=== PATIENT | male | born 1990 | race Caucasian/White ===

== ENCOUNTER 2022-08-02 18:06 | Emergency (ER) | payer MEDICAID ==
[~2022-08-02] VITALS: Ht 185.4 cm; Wt 81.6 kg
--- NOTE | 2022-08-02 18:30 | NUR ---
Patient to ER bed 3 to gown for evaluation. Side rails up. Report given to LIUDMILA OROZCO.
--- NOTE | 2022-08-02 18:39 | NUR ---
urine sent to the lab
[2022-08-02 18:50] LABS: BASOPHILS # (AUTO) 0.1 K/uL (0.0-0.2); BASOPHILS % (AUTO) 0.7 % (0.0-2.0); EOSINOPHILS % (AUTO) 0.1 % (0.0-4.0); HEMATOCRIT 42.1 % (36-54); LYMPHOCYTES # (AUTO) 1.5 K/uL (1.0-5.5); LYMPHOCYTES % (AUTO) 17.4 % (20.5-51.5); MEAN CORPUSCULAR VOLUME 85 fL (79.0-98.0); MONOCYTES # (AUTO) 0.9 K/uL (0.0-1.0); MONOCYTES % (AUTO) 10.5 % (1.7-9.3); NEUTROPHILS % (AUTO) 71.3 % (40.0-70.0); PLATELET COUNT (AUTO) 258 K/uL (130-430); RED BLOOD CELL COUNT(AUTO) 4.95 MIL/uL (4.2-6.2); RED CELL DISTRIBUTION WIDTH 13.9 % (9.0-15.0); WHITE BLOOD COUNT (AUTO) 8.4 K/uL (4.8-10.8)
[2022-08-02 19:21] LABS: ANION GAP 6 (5-15); CALCIUM 9.5 mg/dL (8.4-11.0); CHLORIDE 98 mmol/L (98-107); CREATININE 1.01 mg/dL (0.55-1.30); GLUCOSE 95 mg/dL (70-99); POTASSIUM 3.9 mmol/L (3.5-5.1); UREA NITROGEN, BLOOD 13 mg/dL (8-21)
[2022-08-02 19:27] LABS: ACETAMINOPHEN 1 ug/mL (1-30); ALANINE AMINOTRANSFERASE 22 U/L (12-78); ALBUMIN 4.6 g/dL (3.4-4.8); ASPARTATE AMINOTRANSFERASE 13 U/L (10-37); TOTAL BILIRUBIN 0.4 mg/dL (0.0-1.0)
--- NOTE | 2022-08-02 19:30 | NUR ---
Shimon rivas in ED - 08/02/22 at 2124 by [id number] Patient to bed 3 to [facility] for evaluation. Side rails up. Report given to LIUDMILA YUSUF
[2022-08-02 19:31] LABS: GFR AFRICAN AMERICAN 111 mL/min (>90)
[2022-08-02 19:32] LABS: ALCOHOL, BLOOD < 3 mg/dL (<10)
--- NOTE | 2022-08-02 19:40 | NUR ---
ER at bedside examining patient.
[2022-08-02 19:44] LABS: BILIRUBIN,URINE NEGATIVE (NEGATIVE); BLOOD, URINE NEGATIVE (NEGATIVE); CLARITY/URINE CLEAR (CLEAR); COLOR,URINE YELLOW (YELLOW); GLUCOSE,URINE NEGATIVE (NEGATIVE); KETONES,URINE NEGATIVE (NEGATIVE); LEUKOCYTE ESTERASE ,URINE NEGATIVE (NEGATIVE); NITRITE, URINE NEGATIVE (NEGATIVE); PROTEIN URINE NEGATIVE (NEGATIVE); UROBILINOGEN,URINE 0.2 (0.2-1.0)
[2022-08-02 19:46] VITALS: BP_SYST 154
[2022-08-02 20:33] LABS: CANNABINOID, URINE NEGATIVE (NEG <=50); COCAINE, URINE NEGATIVE (NEG <=150); METHAMPHETAMINES SCREEN,URINE NEGATIVE (NEG <=500); OPIATE, URINE NEGATIVE (NEG <=100); PHENCYCLIDINE SCREEN,URINE NEGATIVE (NEG <=25); URINE AMPHETAMINE NEGATIVE (NEG <=500); URINE METHADONE NEGATIVE (NEG <=200); URINE OXYCODONE SCREEN NEGATIVE (NEG <=100); URINE PROPOXYPHENE SCREEN NEGATIVE (NEG <=300)
[2022-08-02 20:34] LABS: BARBITURATE, URINE POSITIVE (NEG <=200); BENZODIAZEPINE, URINE POSITIVE (NEG <=150); UR TRICYCLIC ANTIDEPRESSANTS NEGATIVE (NEG <=300)
--- NOTE | 2022-08-02 20:45 | NUR ---
PT MOVED TO BED 1 FOR PT SAFETY. PT WONDERING IN OTHER PTS ROOM. SECURITY AT BEDSIDE FOR OBSERVATION, PT ACTING BIZZARE
--- NOTE | 2022-08-02 20:50 | NUR ---
Pt keeps wandering to different beds invading pts privacy. Pt is confused but is compliant. Placed pt to bed #1 to be closer to nurses station and security is at bedside.
--- NOTE | 2022-08-02 22:15 | NUR ---
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
[2022-08-02 23:37] VITALS: BP_SYST 128
== END 2022-08-02 23:37 | disposition home or self-care (01) ==
LOC: SED 18:06
DX: F19.10 Other psychoactive substance abuse, uncomplicated (principal); G93.40 Encephalopathy, unspecified; R41.82 Altered mental status, unspecified; Z79.899 Other long term (current) drug therapy
CPT/HCPCS: 99285; 70450; 71045; 80307; 80053; 85025; 36415; 93005; 76376; 81003; G0482; G0480; G0481